=== PATIENT | female | born 1990 | race Caucasian/White ===

== ENCOUNTER 2018-04-11 16:20 | Inpatient (IN) | payer MEDICAID ==
[~2018-04-11] VITALS: Ht 170.2 cm; Wt 103.4 kg
[2018-04-11] MEDS ORDERED: METOCLOPRAMIDE HCL 5 MG/ML 2 ML VIAL IVP PRN (17:00)
[2018-04-11] MEDS ORDERED: CITRIC ACID/SODIUM CITRATE 30 ML SOLUTION UDCUP PO PRN (17:00)
[2018-04-11] MEDS ORDERED: DINOPROSTONE 10 MG VAGINAL SUPPOSITORY VG ONE (17:00)
[2018-04-11] MEDS ORDERED: RINGERS SOLUTION,LACTATED 1,000 ML IV PRN (17:00)
[2018-04-11] MEDS ORDERED: OXYTOCIN 30 UNITS/LACT RINGERS 500 ML IV ONE (17:00)
[2018-04-11] MEDS ORDERED: LIDOCAINE HCL/PF 1% 30 ML VIAL INJ PRN (17:00)
[2018-04-11] MEDS ORDERED: METHYLERGONOVINE MALEATE 0.2 MG/ML VIAL IM PRN (17:00)
[2018-04-11 17:09] VITALS: BP 130/68
[2018-04-11] MEDS ORDERED: PNV11TAB PO (17:11)
[2018-04-11 17:47] LABS: BASOPHILS % (AUTO) 0.2 % (0.0-2.0); EOSINOPHILS % (AUTO) 0.3 % (1.0-6.0); HEMATOCRIT 37.6 % (36-46); HEMOGLOBIN 13.1 g/dL (12.0-16.0); LYMPHOCYTES # (AUTO) 2.5 K/uL (1.0-4.8); LYMPHOCYTES % (AUTO) 25.9 % (22.0-44.0); MEAN CORPUSCULAR HEMOGLOBIN 32.1 pg (26.0-34.0); MEAN CORPUSCULAR HGB CONC 34.9 G/dL (31.0-37.0); MEAN CORPUSCULAR VOLUME 92 fL (80-100); MONOCYTES # (AUTO) 0.7 K/uL (0.1-1.0); MONOCYTES % (AUTO) 7.7 % (2.0-9.0); NEUTROPHILS # (AUTO) 6.4 K/uL (1.8-7.7); NEUTROPHILS % (AUTO) 65.9 % (40.0-70.0); PLATELET COUNT (AUTO)-OB 132 K/uL (150-450); RED CELL DISTRIBUTION WIDTH 14.4 % (11.5-14.5)
[2018-04-11] MEDS: RINGERS SOLUTION,LACTATED 1,000 ML IV SCH ×2 (18:21→20:55)
[2018-04-11] MEDS ORDERED: OXYGEN THERAPY IH SCH (20:00)
[2018-04-11] MEDS: FentaNYL CITRATE-PF 100 MCG/2 ML VIAL IVP PRN ×2 (22:47→22:52)
[2018-04-12] MEDS ORDERED: FentaNYL CITRATE-PF 100 MCG/2 ML VIAL ONE (00:35)
[2018-04-12] MEDS ORDERED: LIDOCAINE HCL 2%/EPI 1:200,000/PF 20 ML VIAL ONE (00:36)
[2018-04-12] MEDS ORDERED: LIDOCAINE HCL/PF 1% 30 ML VIAL ONE (01:01)
[2018-04-12] MEDS ORDERED: ROPIVACAINE HCL/PF 0.2% 100 ML ED ONE (01:20)
[2018-04-12] MEDS: RINGERS SOLUTION,LACTATED 1,000 ML IV SCH ×4 (01:26→12:01)
[2018-04-12] MEDS ORDERED: DiphenhydrAMINE HCL 50 MG/ML VIAL IVP PRN (01:30)
[2018-04-12] MEDS ORDERED: NALBUPHINE HCL 10 MG/ML VIAL IVP PRN (01:30)
[2018-04-12] MEDS ORDERED: ONDANSETRON HCL 4 MG/2 ML VIAL IVP PRN (01:30)
[2018-04-12] MEDS ORDERED: ROPIVACAINE HCL/PF 0.2% 100 ML ED SCH (02:00)
[2018-04-12] MEDS ORDERED: ROPIVACAINE HCL/PF 0.2% 100 ML ED PRN (02:00)
[2018-04-12] MEDS ORDERED: OXYTOCIN 30 UNITS/LACT RINGERS 500 ML IV PRN (02:24)
[2018-04-12] MEDS ORDERED: -PHARMACY NOTE- MISC ONE (05:00)
[2018-04-12] MEDS ORDERED: OxyCODONE HCL/ACETAMINOPHEN 5-325 MG TABLET PO PRN ×2 (14:30)
[2018-04-12] MEDS ORDERED: LANOLIN 7 GM OINTMENT TP PRN (14:30)
[2018-04-12] MEDS ORDERED: BENZOCAINE 20%/MENTHOL 56 GM SPRAY CANISTER TP PRN (14:30)
[2018-04-12] MEDS ORDERED: GLYCERIN/WITCH HAZEL LEAF 40 PADS JAR TP PRN (14:30)
[2018-04-12] MEDS ORDERED: MAGNESIUM HYDROXIDE SUSPENSION 30 ML UDCUP PO PRN (14:30)
[2018-04-12] MEDS: IBUPROFEN 800 MG TABLET PO PRN ×2 (14:54→21:26)
[2018-04-13] MEDS: IBUPROFEN 800 MG TABLET PO PRN (04:43)
[2018-04-13 06:48] LABS: BASOPHILS % (AUTO) 0.2 % (0.0-2.0); EOSINOPHILS % (AUTO) 0.5 % (1.0-6.0); HEMATOCRIT 33.2 % (36-46); HEMOGLOBIN 11.8 g/dL (12.0-16.0); LYMPHOCYTES # (AUTO) 2.5 K/uL (1.0-4.8); LYMPHOCYTES % (AUTO) 19.9 % (22.0-44.0); MEAN CORPUSCULAR HEMOGLOBIN 32.3 pg (26.0-34.0); MEAN CORPUSCULAR HGB CONC 35.7 G/dL (31.0-37.0); MEAN CORPUSCULAR VOLUME 91 fL (80-100); MONOCYTES # (AUTO) 0.8 K/uL (0.1-1.0); MONOCYTES % (AUTO) 6.5 % (2.0-9.0); NEUTROPHILS # (AUTO) 9.2 K/uL (1.8-7.7); NEUTROPHILS % (AUTO) 72.9 % (40.0-70.0); PLATELET COUNT (AUTO)-OB 102 K/uL (150-450); RED BLOOD CELL COUNT(AUTO) 3.66 MIL/uL (4.00-5.20); RED CELL DISTRIBUTION WIDTH 14.2 % (11.5-14.5)
[2018-04-13] MEDS ORDERED: RINGERS SOLUTION,LACTATED 1,000 ML IV ONE (08:20)
[2018-04-13] MEDS ORDERED: BUPIVACAINE HCL/PF 0.25% 10 ML VIAL ONE (08:22)
[2018-04-13] MEDS ORDERED: GUM MASTIC/STORAX/MSAL/ALCOHOL LIQUID 0.67 ML VIAL TP ONE (08:22)
[2018-04-13] MEDS: RINGERS SOLUTION,LACTATED 1,000 ML IV SCH (08:35)
[2018-04-13] MEDS ORDERED: MIDAZOLAM HCL 2 MG/2 ML VIAL ONE (08:50)
[2018-04-13] MEDS ORDERED: FentaNYL CITRATE-PF 100 MCG/2 ML VIAL ONE ×2 (08:50→11:15)
[2018-04-13] MEDS ORDERED: MEPERIDINE HCL/PF 25 MG/0.5 ML AMP IVP PRN (10:00)
[2018-04-13] MEDS ORDERED: NALBUPHINE HCL 10 MG/ML VIAL IVP PRN (10:00)
[2018-04-13] MEDS ORDERED: MORPHINE SULFATE 10 MG/ML SYRINGE IVP PRN (10:00)
[2018-04-13] MEDS ORDERED: FentaNYL CITRATE-PF 100 MCG/2 ML VIAL IVP PRN ×3 (10:00)
[2018-04-13] MEDS ORDERED: MORPHINE SULFATE 2 MG/ML SYRINGE IVP PRN ×2 (10:00)
[2018-04-13] MEDS ORDERED: ONDANSETRON HCL 4 MG/2 ML VIAL IVP PRN (10:00)
[2018-04-13] MEDS ORDERED: DEXAMETHASONE SOD PHOS 4 MG/ML VIAL IVP PRN (10:00)
[2018-04-13] MEDS ORDERED: DiphenhydrAMINE HCL 50 MG/ML VIAL IVP PRN (10:00)
[2018-04-13] MEDS ORDERED: DiphenhydrAMINE HCL 50 MG/ML VIAL IM PRN (10:00)
[2018-04-13] MEDS ORDERED: IBUP-2071 PO (12:37)
[2018-04-13] MEDS ORDERED: ACET1TAB12 PO (12:37)
[2018-04-13] MEDS ORDERED: 0.9% SODIUM CHLORIDE 10 ML VIAL IVP ONE (17:39)
[2018-04-13] MEDS ORDERED: OXYGEN THERAPY IH SCH ×2 (20:00)
== END 2018-04-13 17:40 | disposition home or self-care (01) | DRG 541 ==
LOC: OBSVTOIN 16:20 → 4S 16:20
PROVIDERS: ADMIT Obstetrics & Gynecology; ATTEND Obstetrics & Gynecology
PROC: 10E0XZZ Delivery of Products of Conception, External Approach (ICD-10-PCS; principal; 2018-04-12)
PROC: 0KQM0ZZ Repair Perineum Muscle, Open Approach (ICD-10-PCS; 2018-04-12)
PROC: 10907ZC Drainage of Amniotic Fluid, Therapeutic from Products of Conception, Via Natural or Artificial Opening (ICD-10-PCS; 2018-04-12)
PROC: 3E0S3BZ Introduction of Anesthetic Agent into Epidural Space, Percutaneous Approach (ICD-10-PCS; 2018-04-12)
PROC: 00HU33Z Insertion of Infusion Device into Spinal Canal, Percutaneous Approach (ICD-10-PCS; 2018-04-12)
PROC: 0UB70ZZ Excision of Bilateral Fallopian Tubes, Open Approach (ICD-10-PCS; 2018-04-13)
DX: O69.81X0 Labor and delivery complicated by cord around neck, without compression, not applicable or unspecified (principal); O70.1 Second degree perineal laceration during delivery; Z37.0 Single live birth; Z3A.39 39 weeks gestation of pregnancy; Z30.2 Encounter for sterilization
CPT/HCPCS: 86850; 86900; 86901; 88302; J0690; J2250; J2590; J2795; J3010; J3490; J7120